=== PATIENT | male | born 1960 | race Caucasian/White ===

== ENCOUNTER 2016-09-20 05:38 | Outpatient (CLI) | payer OTHER ==
[~2016-09-20] VITALS: Ht 185.4 cm; Wt 117.9 kg
[~2016-09-20 05:38] MED LIST: MULT-963 PO
--- OUTSIDE RECORDS SUMMARY | 2016-09-20 05:41 | XMS REPORT | Continuity of Care Document ---
Author Author [facility] Organization [facility] Address Unknown Phone Unavailable Allergies Active Description Code Type Severity Reaction Onset Reported/Identified Relationship to Patient Clinical Status Yes No Known Drug Allergies [id number] Drug Allergy Unknown N/ A 10/02/2012 Medications Problems Date Dx Coded Attending Type Code Diagnosis Diagnosed By 10/02/2012 Ot 211.3 BENIGN NEOPLASM LG BOWEL 10/02/2012 Ot 562.10 DIVERTICULOSIS COLON (W/O MENT OF HEMORR 10/02/2012 Ot 600.00 HYPERTROPHY (BENIGN) OF PROSTATE W/O URI 10/02/2012 Ot V16.0 FAMILY HX-GI MALIGNANCY 10/02/2012 Ot V76.51 SCREEN MAL NEOP-COLON 11/16/2015 Ot 715.37 LOC OSTEOARTH NOS-ANKLE 11/16/2015 Ot 718.17 LOOSE BODY-ANKLE 11/16/2015 Ot 719.07 JOINT EFFUSION-ANKLE 11/16/2015 Ot 733.90 BONE CARTILAGE DIS NOS 11/16/2015 Ot V72.84 EXAM PRE-OPERATIVE NOS 11/17/2015 JOANNA DAI DO Ot M25.532 PAIN IN LEFT WRIST 11/17/2015 JOANNA DAI DO Ot M25.532 PAIN IN LEFT WRIST 05/19/2016 Ot 715.37 LOC OSTEOARTH NOS-ANKLE 05/19/2016 Ot 718.17 LOOSE BODY-ANKLE 05/19/2016 Ot 719.07 JOINT EFFUSION-ANKLE 05/19/2016 Ot 733.90 BONE CARTILAGE DIS NOS 05/19/2016 Ot V72.84 EXAM PRE-OPERATIVE NOS 05/19/2016 JOANNA DAI DO Ot M25.532 PAIN IN LEFT WRIST 05/19/2016 JOANNA DAI DO Ot M25.532 PAIN IN LEFT WRIST Procedures Results Encounters ACCT No. Visit Date/Time Discharge Status Pt. Type Provider Facility Loc./Unit Complaint [id number] 11/16/2015 13:16:00 ACT Outpatient JOANNA DAI DO [facility] RAD LEFT WRIST PAIN [id number] 10/02/2012 08:03:00 Document Registration [id number] 09/26/2012 08:01:00 Document Registration [id number] 12/16/2010 09:25:00 Document Registration
[2016-09-20] MEDS ORDERED: LOSA1TAB9 PO (09:09)
[2016-09-20] MEDS ORDERED: OMEG500C3 PO (09:09)
[2016-09-20] MEDS ORDERED: BUPR150T7 PO (09:09)
== END 2016-09-20 09:15 ==
LOC: PREOP 05:38
PROVIDERS: ATTEND Internal Medicine
DX: Z01.818 Encounter for other preprocedural examination (principal); Z12.11 Encounter for screening for malignant neoplasm of colon; Z80.0 Family history of malignant neoplasm of digestive organs

== ENCOUNTER 2016-09-23 07:32 | Day surgery (SDC) | payer OTHER ==
[~2016-09-23] VITALS: Ht 185.4 cm; Wt 117.9 kg
[~2016-09-23 07:32] MED LIST changes: +BUPR150T7 PO; +LOSA1TAB9 PO; +OMEG500C3 PO
[2016-09-23] MEDS ORDERED: 1/2 NS IV SOLUTION 1,000 ML IV STA (07:38)
[2016-09-23] MEDS ORDERED: 1/2 NS IV SOLUTION 1,000 ML IV ONE (07:45)
[2016-09-23] MEDS ORDERED: LIDOCAINE JELLY 2% (XYLOCAINE) 5 ML TUBE MM PRN (07:45)
[2016-09-23] MEDS ORDERED: FLUMAZENIL (ROMAZICON) 0.1 MG/ML 5 ML VIAL INJ PRN (07:45)
[2016-09-23] MEDS ORDERED: NALOXONE 0.4 MG/ML 1 ML (NARCAN) VIAL IVP PRN (07:45)
[2016-09-23] MEDS ORDERED: MIDAZOLAM 2 MG/2 ML (VERSED) VIAL IVP PRN (07:45)
--- NOTE | 2016-09-23 08:00 | Pre-Op Note & Conscious Sedat ---
Pre-Operative Progress Note H&P Reviewed The H&P was reviewed, patient examined and no changes noted. Date H&P Reviewed: Sep 23, 2016 Time H&P Reviewed: 08:00 Conscious Sedation Pre-Proced ASA Class: 2 Airway Mallampati Classification: (pamunkey appropriate class) I. II. III, IV Lungs Heart ASA score ASA 1: a normal healthy patient ASA 2: a patient with a mild systemic disease (mid diabetes, controlled hypertension, obesity ASA 3: a patient with a severe systemic disease that limits activity (angina , COPD, prior Myocardial infarction) ASA 4: a patient with an incapacitating disease that is a constant threat to life (CHF, renal failure) ASA 5: a moribund patient not expected to survive 24 hrs. (ruptured aneurysm) ASA 6: a declared brain patient whose organs are being harvested. For emergent operations, add the letter E after the classification Grade 3 Sedation Plan: Analgesia, Amnesia, Plan communicated to team members, Discussed options with patient/fam, Discussed risks with patient/fam Note The patient is an appropriate candidate to undergo the planned procedure, sedation, and anesthesia. The patient immediately re-assessed prior to indication. JACKSON CABALLERO MD Sep 23, 2016 08:00
[2016-09-23] MEDS ORDERED: LIDOCAINE JELLY 2% (XYLOCAINE) 5 ML TUBE ONE (08:02)
[2016-09-23] MEDS ORDERED: fentaNYL INJECTION 100 MCG/2 ML AMP ONE (08:02)
[2016-09-23] MEDS ORDERED: MIDAZOLAM 2 MG/2 ML (VERSED) VIAL ONE (08:02)
[2016-09-23] MEDS: fentaNYL INJECTION 100 MCG/2 ML AMP IVP PRN ×2 (08:10→08:20)
[2016-09-23 08:19] VITALS: BP 138/85
--- NOTE | 2016-09-23 08:22 | HISTORY AND PHYSICAL ---
DATE OF ADMISSION: 09/23/2016 DICTATING PHYSICIAN: Dr. Anthony REQUESTING PHYSICIAN: Dr. Rihcmond REASON FOR ADMISSION: Surveillance colonoscopy due to a past history of colon polyps and a family history of colon cancer, index case being his father diagnosed in his early 60s. BRIEF HISTORY: Mr. Loyd is a 57-year-old white male with a past history of colon polyps, who last underwent colonoscopy in 2012, at which time he had polyp removed from his distal sigmoid colon. He reports that in the interim he has felt well. He has had no subsequent surgeries. He has noted no blood in the stool, bright red or melena and denies bowel habit change. PAST MEDICAL HISTORY: Significant for hypertension. FAMILY HISTORY: Pertinent for colon cancer in his father diagnosed in his 60s. SOCIAL HISTORY: He is salesman for [employer]. He reports social alcohol intake only with no past smoking history. ALLERGIES: He reports no known medical allergies. PHYSICAL EXAMINATION: Reveals a pleasant white male, appears to be in no acute distress. His weight at 260 pounds is down 22 pounds from his last office weight in 10 years ago. VITAL SIGNS: Blood pressure was 140/86. CHEST: Clear. CV: Revealed a regular rate and rhythm without murmur, S3 or S4. ABDOMEN: Soft, supple without mass, organomegaly or tenderness. EXTREMITIES: Reveal no cyanosis, clubbing, or edema. RECTAL EXAMINATION: Deferred to the time of colonoscopy. ASSESSMENT: The patient was set-up for a screening colonoscopy on the 23 of September. Prep instructions were given and questions were answered. I thank you for the referral of this pleasant gentleman. Sincerely, Job ID: [id number] Dictated Date: 09/22/2016 15:32:00 Couples Therapist Date: 09/23/2016 06:04:38/theodora
[2016-09-23 08:50] VITALS: BP 128/69
[2016-09-23 09:20] VITALS: BP 130/70
[2016-09-23 09:33] VITALS: BP 130/70
--- NOTE | 2016-09-23 10:50 | PROCEDURE REPORT ---
PROCEDURE PHYSICIAN: JACKSON CABALLERO DATE OF PROCEDURE: 09/23/2016 INDICATION FOR THE PROCEDURE: 1. Screening. 2. Family history for colon cancer. PROCEDURE: The patient was placed in the left lateral decubitus position. Prior to undergoing colonoscopy, digital rectal evaluation was performed. Anal sphincter tone was normal and the perianal reflux was intact. The prostate was mildly enlarged, anodular and nontender to digital inspection. Anal sphincter tone was normal. The perianal reflux was intact. No other abnormalities were noted to digital inspection of the anal canal or distal rectal vault. The colonoscope was then inserted into the rectum and under visualization, advanced to the cecum. The cecum was identified by identification of the ileocecal valve and cecal strap. Photographic documentation was obtained. Careful inspection was made as the colonoscope withdrawn. The patient tolerated the procedure well. FINDINGS: There is no evidence for internal or external hemorrhoids. The rectum was unremarkable. Several small sigmoid diverticulum were present, without evidence for diverticulitis. No other sigmoid colonic abnormalities were appreciated. The descending colon, splenic flexure, transverse colon, hepatic flexure were unremarkable. Present in the proximal ascending colon was a diminutive adenomatous appearing polyp present in the proximal ascending colon measuring 2 x 3 mm in size. It was photographed, biopsied, ablated, and submitted for histopathology. The remainder of the ascending colon and cecum as well as appendiceal orifice was unremarkable. ASSESSMENT: 1. One diminutive proximal adenomatous appearing ascending colonic polyp was present. It was subsequently biopsied and ablated, with hot forceps and submitted for histopathology with no noted blood loss. 2. Mild diverticular disease confined to the sigmoid colon was present, without evidence for diverticulitis. 3. Digital evaluation of the prostate was compatible with mild benign prostatic hypertrophy. I would advocate consideration for repeat screening colonoscopy in approximately 5 years. I thank you for the referral of this pleasant gentleman. Sincerely, Jackson Kongon Job ID: [id number] Dictated Date: 09/23/2016 08:55:22 Field Manager Date: 09/23/2016 10:43:33 / dami CASTILLO
--- OUTSIDE RECORDS SUMMARY | 2016-09-25 11:57 | XMS REPORT | Continuity of Care Document ---
Author Author [facility] Organization [facility] Address Unknown Phone Unavailable Allergies Active Description Code Type Severity Reaction Onset Reported/Identified Relationship to Patient Clinical Status Yes No Known Drug Allergies [id number] Drug Allergy Unknown N/ A 09/20/2016 Medications Problems Date Dx Coded Attending Type [...] Status Pt. Type Provider Facility Loc./Unit Complaint [id number] 09/20/2016 05:38:00 2016 09:15:00 DIS Outpatient ADA BALTAZAR, JACKSON Bella [facility] PREOP SCREENING, FAMILY HISTORY OF COLON CANCER [id number] 11/16/2015 13:16:00 ACT Outpatient JOANNA DAI DO [facility] RAD LEFT WRIST PAIN [id number] 10/02/2012 08:03:00 Document Registration [id number] 09/26/2012 08:01:00 Document Registration [id number] 12/16/2010 09:25:00 Document Registration
== END 2016-09-23 09:35 | disposition home or self-care (01) ==
LOC: DELPENDDIS → ENDO 07:32
PROVIDERS: ATTEND Internal Medicine
DX: Z12.11 Encounter for screening for malignant neoplasm of colon (principal); K63.5 Polyp of colon; K57.30 Diverticulosis of large intestine without perforation or abscess without bleeding; Z80.0 Family history of malignant neoplasm of digestive organs
CPT/HCPCS: 88305

== ENCOUNTER → 2018-04-30 | Outpatient (CLI) | payer OTHER | LOC: CARD 09:25 | PROVIDERS: ATTEND Internal Medicine Cardiovascular Disease | DX: R07.9 Chest pain, unspecified (principal); I10 Essential (primary) hypertension | CPT/HCPCS: 93351 ==

== ENCOUNTER → 2019-10-17 | Outpatient (CLI) | payer OTHER ==
--- NOTE | 2019-10-17 12:16 | Diagnostic Imaging Report ---
PROCEDURE: CT head without contrast. TECHNIQUE: Multiple contiguous axial images were obtained through the brain without the use of intravenous contrast. Auto Exposure Controls were utilized during the CT exam to meet ALARA standards for radiation dose reduction. INDICATION: Unsteady gait and altered mental status No prior examination available for comparison. FINDINGS: The ventricles and sulci are within normal limits. There is no hydrocephalus or cerebral edema. There is no midline shift or mass effect. There is no intracranial mass, hemorrhage, or extra-axial fluid collection. The visualized paranasal sinuses and mastoid air cells are clear. There are no regional areas of decreased attenuation appreciated to suggest an acute CVA. IMPRESSION: No acute intracranial abnormality. Dictated by: Dictated on workstation # [id number]
--- NOTE | 2019-10-17 12:24 | Diagnostic Imaging Report ---
PROCEDURE: US carotid duplex, bilateral. TECHNIQUE: Multiple real-time grayscale images were obtained over the carotid arteries in various projections, bilaterally. Additional spectral analysis and color Doppler duplex images were also obtained. INDICATION: Transient ischemic attack. FINDINGS: Velocities appear to be normal bilaterally. No velocity elevation or stenosis is identified. There is a thin echogenic curvilinear structure and the proximal left common carotid artery. This could potentially represent an intimal flap from dissection. Both vertebral arteries show antegrade flow. Parameters based on the consensus panel [employer] and Doppler ultrasound criteria published May 2003, Radiology, Volume 229. DOPPLER (peak systolic velocity M/S Right Left CCA .88 1.01 ICA Proximal .57 .56 ICA Mid .89 .61 ICA Distal .92 .74 RATIO 1.05 .74 ECA 1.08 1.06 VERT .41 .53 IMPRESSION: 1. No evidence of a hemodynamically significant stenosis. 2. Questionable intimal flap in the proximal left common carotid artery which can be seen with dissection. CT angiography would be useful for further evaluation. Dictated by: Dictated on workstation # [id number]
== END ==
LOC: RAD 11:18
PROVIDERS: ATTEND Family Medicine
DX: G45.9 Transient cerebral ischemic attack, unspecified (principal); R01.1 Cardiac murmur, unspecified
CPT/HCPCS: 70450; 93306; 93880

== ENCOUNTER → 2019-10-18 | Outpatient (CLI) | payer OTHER ==
[~2019-10-18] MED LIST changes: +HOLD METFORMIN - RECEIVED CONTRAST 20 ML VIAL IV SCH; +IOHEXOL 350 MG/ML 100 ML (OMNIPAQUE 350) VIAL IV ONE; +NS 100 ML (IVPB) BAG IV ONE
--- NOTE | 2019-10-18 11:58 | Diagnostic Imaging Report ---
PROCEDURE: CT angiography of the head and CT angiography of the neck with and without contrast. TECHNIQUE: Initial noncontrast CT of head is performed. After intravenous contrast administration, helical CT angiography of the neck was performed. Source data was reformatted into 3D MIP projections. Delayed post contrast acquisition was also obtained. Auto Exposure Controls were utilized during the CT exam to meet ALARA standards for radiation dose reduction. INDICATION: Unsteady gait. Altered mental status. Episodes of left-sided drift. COMPARISON: CT head performed 10/17/2019. Carotid ultrasound performed 10/17/2019. FINDINGS: CTA Neck: The visualized portions of the aortic arch demonstrate no evidence of aneurysm or dissection. There is conventional branching pattern of the great vessels of the aorta. The brachiocephalic artery is normal in course and caliber. The right and left common carotid origins are unremarkable. The origin of the left subclavian artery is patent. The common carotid arteries and internal carotid arteries demonstrate a normal course and caliber. There is atherosclerotic plaque in the bilateral carotid bulbs and proximal internal carotid arteries without flow-limiting stenosis. No evidence of stenosis or dissection in the carotid systems. The external carotid arteries are patent and unremarkable. The vertebral arteries are codominant. The origin of the right vertebral artery is seen and is unremarkable. The origin of the left vertebral artery is seen and is unremarkable. There is no focal stenosis seen within the neck. There is no dissection. The vertebral arteries are well visualized to up to the level of the basilar artery. The osseous structures of the [id number] spine are unremarkable. Included views through the lung apices demonstrate no focal consolidation. CTA brain: The bilateral distal internal carotid arteries are well visualized without stenosis.. No stenosis is seen in the bilateral anterior, middle, and posterior cerebral arteries. No evidence of aneurysm the [place]. In the posterior circulation, both of the vertebral arteries demonstrate normal opacification. The vertebral arteries are codominant. Both the right and left PICA arteries are identified. The basilar artery is normal in course and caliber. The terminal branch vessels including the superior cerebellar arteries unremarkable. CT HEAD: No large acute territorial ischemia, mass, or hemorrhage. Stable focus of chronic appearing infarct in the right frontal lobe. The ventricles, cortical sulci, and basilar cisterns are symmetric and unremarkable. The scalp and calvarium are intact. The paranasal sinuses and mastoid air cells are well pneumatized. The globes and orbits are symmetric and unremarkable. IMPRESSION: 1. No stenosis or aneurysm in the [place]. 2. No stenosis or dissection the bilateral carotid and vertebral arteries. No evidence of dissection in the left common carotid artery. This was questionable on the prior carotid ultrasound performed 10/17/2019. 3. No large acute territorial ischemia, mass, or hemorrhage. 4. Stable chronic appearing small infarct in the right frontal lobe. However, if concern for acute process, MRI brain may be considered to further evaluate. Dictated by: Dictated on workstation # [id number]
== END ==
LOC: RAD 11:09
PROVIDERS: ATTEND Family Medicine
DX: G45.9 Transient cerebral ischemic attack, unspecified (principal)
CPT/HCPCS: 70496; 70498

== ENCOUNTER 2019-11-11 09:43 | Outpatient (RCR) | payer OTHER ==
[~2019-11-11 09:43] MED LIST changes: -HOLD METFORMIN - RECEIVED CONTRAST 20 ML VIAL IV SCH; -IOHEXOL 350 MG/ML 100 ML (OMNIPAQUE 350) VIAL IV ONE; -NS 100 ML (IVPB) BAG IV ONE
== END 2020-02-09 | disposition home or self-care (01) ==
LOC: CARD 09:43
PROVIDERS: ATTEND Internal Medicine Interventional Cardiology
DX: I10 Essential (primary) hypertension (principal); E78.01 Familial hypercholesterolemia; R00.2 Palpitations; Z86.73 Personal history of transient ischemic attack (TIA), and cerebral infarction without residual deficits
CPT/HCPCS: 93270; 93306

== ENCOUNTER 2020-01-02 08:26 | Day surgery (SDC) | payer OTHER ==
[~2020-01-02] VITALS: Ht 185.4 cm; Wt 124.5 kg
[2020-01-02] MEDS ORDERED: LIDOCAINE 1% INJ 20 ML 20 ML VIAL ONE (08:34)
[2020-01-02 08:41] VITALS: BP 147/91
--- NOTE | 2020-01-02 10:27 | Implantation of Loop Monitor ---
Implant of Loop Monitior IMPLANTATION OF LOOP MONITOR REPORT DATE OF PROCEDURE: 01/02/20 PERFORMING PHYSICIAN: Dr. Lenny Montgomery. INDICATION: Cryptogenic stroke, Long-term surveillance of atrial fibrillation PREOP DIAGNOSIS: Cryptogenic stroke, Long-term surveillance of atrial fibrillation POSTOP DIAGNOSIS: Cryptogenic stroke, s/p implantation of loop recorder. PROCEDURE DETAILS: The patient is a 59 male with history of recurrent TIA/cryptogenic stroke requiring long-term surveillance for paroxysmal atrial fibrillation. Therefore implantable loop recorder was discussed and agreed with the patient. Informed consent was taken. All risks and complications were discussed at length. The patient was draped and prepped in the usual sterile fashion. Local anesthesia was lidocaine, which was given in the substernal area close to the 4th intercostal space. Loop monitor was implanted according to the protocol. Steri- Strips were placed at the end of the procedure. There were no complications and the patient tolerated the procedure well. ANESTHESIA: Local anesthesia with lidocaine. COMPLICATIONS: None CONTRAST/FLUOROSCOPY: None CONCLUSION: 1. Successful implantation of loop monitor for recurrent TIA/cryptogenic stroke. 2. No complication and the patient tolerated the procedure well. Radha Montgomery MD, [facility] Cardiac Electrophysiology Javi MONTGOMERY MD Jan 02, 2020 10:27
== END 2020-01-02 10:29 | disposition home or self-care (01) ==
LOC: CATH 08:26
PROVIDERS: ATTEND Internal Medicine Interventional Cardiology
DX: I63.9 Cerebral infarction, unspecified (principal); I48.0 Paroxysmal atrial fibrillation; I10 Essential (primary) hypertension; E78.01 Familial hypercholesterolemia; E66.9 Obesity, unspecified; E78.5 Hyperlipidemia, unspecified; Z88.0 Allergy status to penicillin; Z79.82 Long term (current) use of aspirin; Z68.36 Body mass index [BMI] 36.0-36.9, adult; Z82.3 Family history of stroke; Z87.891 Personal history of nicotine dependence
CPT/HCPCS: 33285; C1764

== ENCOUNTER 2021-08-05 07:37 | Outpatient (CLI) | payer OTHER ==
[~2021-08-05 07:37] MED LIST changes: +BUPR150T24 PO; -BUPR150T7 PO
[2021-08-05] MEDS ORDERED: ATOR10TA66 PO (15:21)
[2021-08-05] MEDS ORDERED: AMLO2.5T4 PO (15:21)
[2021-08-05] MEDS ORDERED: ASPI-808 PO (15:21)
[2021-08-05] MEDS ORDERED: CHOL200014 PO (15:21)
[2021-08-05] MEDS ORDERED: ALLO100T PO (15:21)
== END 2021-08-05 15:22 | disposition home or self-care (01) ==
LOC: PREOP 07:37
PROVIDERS: ATTEND Internal Medicine
DX: Z01.818 Encounter for other preprocedural examination (principal)

== ENCOUNTER 2021-09-30 06:09 | Outpatient (CLI) | payer OTHER ==
[~2021-09-30] VITALS: Ht 180 cm; Wt 127.7 kg
[~2021-09-30 06:09] MED LIST changes: +ALLO100T PO; +AMLO2.5T4 PO; +ASPI-808 PO; +ATOR10TA66 PO; +CHOL200014 PO
== END 2021-10-01 14:08 | disposition home or self-care (01) ==
LOC: PREOP 06:09
PROVIDERS: ATTEND Internal Medicine
DX: Z01.818 Encounter for other preprocedural examination (principal)